=== PATIENT | female | born 1965 | race Caucasian/White ===

== ENCOUNTER 2016-11-10 23:21 | Observation (INO) | payer OTHER ==
--- NOTE | ~2016-11-10 | HP ---
History And Physical [place] [address] [place]. [address] NAME: YOLANDE QUINN : 63 STATUS : ADM Nelson PAT#: [id number] AGE: 51 ADM/REG DATE : 11/10/16 MR#: [id number] REPORT SERV DATE: 11/11/16 DICTATED BY: JAERTH PRICE DATE: 11/11/16 REPORT STATUS : Draft TRANSCRIBED BY: RENÉ DATE: 11/11/16 DATE OF ADMISSION: 11/10/2016 PRIMARY CARE PROVIDER: Allen Omalley Rayna. SAP PORTAL CONSULTANT: Murray Shay M.D. CHIEF COMPLAINT: Chest pain. HISTORY OF PRESENT ILLNESS: A very pleasant, but somewhat anxious 51-year-old white female with no known history of CAD, states that on 11/10, she had an extremely busy day at her [employer] and was also stressful and loud. She reports recently having had a cold and having taken some uuwk-vqi-snrcifd cold medicine yesterday morning. Later in the day, she experienced some chest pain and tightness with some radiation into her jaw and into her left shoulder blade. She states her hands hurt, but that is not unusual for her as she has some chronic bone pain in her left hand. She stopped on her way here at [facility]. Her blood pressure was checked, it was 160/100, and her pulse rate was 98. She describes her chest discomfort as a smothering tightness with associated shortness of breath and diaphoresis. She denies any nausea, dizziness, or belching. At its most intense, the chest pain was rated an 8/10. At time of interview in the [facility], she is pain free. She did take a low-dose aspirin prior to arrival here and states the episode lasted approximately 60 minutes in duration. The patient does not report any personal history of myocardial infarction, stroke, DVT, or pulmonary embolus. The patient recently treated with a Z-Adama for cold and confirms taking an wxny-mub-rcteiwu decongestant. Denies palpitations. No syncopal episodes. Denies PND or orthopnea. PAST MEDICAL HISTORY: 1. Hypertension. 2. Dyslipidemia. 3. Anxiety. 4. Denies diabetes. 5. GERD. 6. Chronic bone pain, left hand. 7. Positive family history for early CAD. 8. Reported carotid stenosis. PAST SURGICAL HISTORY: Hysterectomy, tubal ligation, right carpal tunnel, and endometriosis. SOCIAL HISTORY: She is , with one child. She is employed as a hairdresser. She does not have a structured exercise routine. Denies tobacco or illicits. Rarely consumes alcohol. FAMILY HISTORY: Father at 52 of a heart attack. Brother at 56 of a heart attack. Sister at 48 of a heart attack. History And Physical [address] [address] NAME: YOLANDE QUINN : 63 STATUS : ADM Nelson PAT#: [id number] AGE: 51 ADM/REG DATE : 11/10/16 MR#: [id number] REPORT SERV DATE: 11/11/16 DICTATED BY: JARETH PRICE DATE: 11/11/16 REPORT STATUS : Draft TRANSCRIBED BY: RENÉ DATE: 11/11/16 REVIEW OF SYSTEMS: A 14-point review of systems performed, significant for HPI. No other contributory factors identified. Otherwise, complete review of systems obtained and negative. ALLERGIES: NO KNOWN DRUG ALLERGIES HOME. HOME MEDICATIONS: Xanax 2 mg twice daily; aspirin 81 mg daily; Lexapro 20 mg daily; estradiol patch twice weekly; Lasix 20 mg daily p.r.n. edema, last taken one month ago; hydrocodone 10/325 every four hours p.r.n.; lisinopril 20 mg daily; meloxicam 7.5 mg daily; metoprolol succinate 25 mg daily; potassium 10 mEq daily with Lasix; Crestor 20 mg twice daily; Ambien 10 mg nightly; Prevacid one daily. PHYSICAL EXAMINATION: VITAL SIGNS: Bilateral blood pressures on arrival, right 149/72, left 153/84, this morning 122/56; pulse 58; respirations 20; temperature 97.5; O2 saturation 98% on room air. Height 5 feet 3 inches, weight 200 pounds, BMI 35. GENERAL: Cooperative, in no apparent distress. HEENT: Pupils 2 mm. Sclera nonicteric. Nares patent. Moist mucous membranes. No xanthelasma. NECK: Trachea midline. No thyromegaly. No JVD. No bruits. LYMPH: No cervical lymphadenopathy. No supraclavicular lymphadenopathy. RESPIRATORY: Unlabored respirations. Breath sounds clear bilaterally to posterior auscultation. No wheezes or rhonchi. CARDIOVASCULAR: Regular rate. No murmur, rub, or gallop appreciated. Extremities without edema. A faint left radial pulse. ABDOMEN: Soft, nontender, nondistended. Normal bowel sounds auscultated throughout. No organomegaly. SKIN: Warm, dry extremities. No pallor or cyanosis. PSYCHIATRIC: Appropriate affect. Alert, oriented x3. LABORATORY DATA: Troponin less than 0.02 x3. Potassium 3.7 (previously 3.2), BUN 14, creatinine 0.66, glucose 69, magnesium 2.3. WBC 8.1, hemoglobin 14.1, hematocrit 40.4, platelet count 349,000. EKG, sinus rhythm, first-degree AV block, nonspecific ST waves. Echo, 2011: EF 60%. MPI, 07/2015: Clement stage 2, 4.77 minutes, 7 METs, no ischemia. ASSESSMENT AND PLAN: 1. Chest pain in a patient with risk factors of hypertension, dyslipidemia, and family history. The patient has been observed in the CPOU overnight to rule out myocardial infarction. Serial enzymes and EKGs stable. The patient has been held n.p.o. We will proceed with MPI today. The patient will be discharged home if low risk, no ischemia. If anything suggestive of ischemia, Cardiology referral will be initiated. Otherwise, the patient will be asked to follow up her PCP and Dr. Shay as appropriate. 2. Hypertension. Monitor blood pressure. Continue home medications. Hold beta-anthony until after MPI. History And Physical [address] [address] NAME: YOLANDE QUINN : 63 STATUS : ADM Nelson PAT#: [id number] AGE: 51 ADM/REG DATE : 11/10/16 MR#: [id number] REPORT SERV DATE: 11/11/16 DICTATED BY: JARETH PRICE DATE: 11/11/16 REPORT STATUS : Draft TRANSCRIBED BY: RENÉ DATE: 11/11/16 3. Dyslipidemia. Continue statin. 4. Anxiety. Continue home medications. 5. Hypokalemia, initially 3.2, repleted per protocol, now 3.7. KANDACE/RENÉ LACEY Alonso, EMILIANA / [id number] CC: LACEY Alonso, EMILIANA Shay M.D.
[2016-11-10 20:04] LABS: BASOPHILS 0.4 %; BASOPHILS ABSOLUTE 0.03 10/3/uL (0.0-0.16); EOSINOPHILS 0.5 %; EOSINOPHILS ABSOLUTE 0.04 10/3/uL (0.0-0.53); HEMATOCRIT 40.4 % (36.0-48.0); HEMOGLOBIN 14.1 g/dL (12.0-16.0); IMMATURE GRANULOCYTES 0.2 %; IMMATURE GRANULOCYTES ABSOLUTE 0.02 10/3/uL (0.0-0.11); LYMPHOCYTES 16.7 %; LYMPHOCYTES ABSOLUTE 1.35 10/3/uL (0.67-4.30); MEAN CORPUS HGB CONC 34.9 g/dL (32.0-36.0); MEAN CORPUSCULAR HEMOGLOB 31.2 pg (26.0-34.0); MEAN CORPUSCULAR VOLUME 89.4 fL (80-100); MEAN PLATELET VOLUME 9.9 fL (9.2-13.0); MONOCYTES 7.3 %; MONOCYTES ABSOLUTE 0.59 10/3/uL (0.21-1.20); NEUTROPHILS 74.9 %; NEUTROPHILS ABSOLUTE 6.03 10/3/uL (2.02-8.40); PLATELET COUNT 349 10/3/uL (150-400); RBC DISTRIBUTION WIDTH 12.1 % (12.0-16.0); RED CELL COUNT 4.52 10/6/uL (4.0-5.6); WHITE BLOOD CELLS 8.1 10/3/uL (4.5-10.5)
[2016-11-10 20:08] LABS: MANUAL DIFF NO %
[2016-11-10 20:11] LABS: INTERNATIONAL NORMAL RATI 1.1 UNITS (-); PROTIME (NOT ORD) 13.6 SEC (12.0-14.5)
[2016-11-10 20:19] LABS: BUN (BLOOD UREA NITROGEN) 14 MG/DL (6-23); CALCIUM, SERUM 9.4 MG/DL (8.5-10.4); CHEST PAIN PROFILE TAT 0 Hrs 21 Mins; CHLORIDE, SERUM 103 MMOL/L (96-112); CO2 (CARBON DIOXIDE) 28 MMOL/L (24-34); CREATININE 0.66 MG/DL (0.55-1.02); GFR AFRICAN AMERICAN 118 ML/MIN (>=60); GFR NON AFRICAN AMERICAN 102 ML/MIN (>=60); GLUCOSE, SERUM 69 MG/DL (60-99); POTASSIUM, SERUM 3.2 MMOL/L (3.5-5.3); SODIUM, SERUM 142 MMOL/L (135-148); TROPONIN I <0.02 NG/ML (<0.05)
[2016-11-11] MEDS ORDERED: CRESTOR40 MG PO (02:15)
[2016-11-11] MEDS ORDERED: TOPXL25 PO (02:17)
[2016-11-11] MEDS ORDERED: KLOR-CON 1010 MEQ PO (02:20)
[2016-11-11] MEDS ORDERED: AMB10 PO (02:20)
[2016-11-11] MEDS ORDERED: MOBIC7.5 PO (02:20)
[2016-11-11] MEDS ORDERED: LEXAPRO20 PO (02:21)
[2016-11-11] MEDS ORDERED: XANAX2 MG PO (02:22)
[2016-11-11] MEDS ORDERED: NORCO1 TAB PO (02:23)
[2016-11-11] MEDS ORDERED: PRIN20 PO (02:24)
[2016-11-11] MEDS ORDERED: MINIVELLE1 EAC1 TOP (02:25)
[2016-11-11] MEDS ORDERED: L20 PO (02:29)
[2016-11-11] MEDS ORDERED: ASAB PO (02:30)
[2016-11-11] MEDS ORDERED: PREV15 PO (13:10)
[2016-11-11] MEDS ORDERED: CRESTOR20 MG PO (13:11)
== END 2016-11-11 14:24 | disposition home or self-care (01) ==
LOC: ER 23:21 → CDU1 23:40
PROVIDERS: Nurse Practitioner
DX: R07.9 Chest pain, unspecified (principal); I10 Essential (primary) hypertension; E78.5 Hyperlipidemia, unspecified; F41.9 Anxiety disorder, unspecified; E87.6 Hypokalemia; K21.9 Gastro-esophageal reflux disease without esophagitis; E78.00 Pure hypercholesterolemia, unspecified; Z82.49 Family history of ischemic heart disease and other diseases of the circulatory system; Z90.710 Acquired absence of both cervix and uterus; Z98.51 Tubal ligation status; Z98.890 Other specified postprocedural states; Z79.82 Long term (current) use of aspirin; Z79.891 Long term (current) use of opiate analgesic; Z79.899 Other long term (current) drug therapy
CPT/HCPCS: 71020; 78452; 80048; 83735; 84132; 84484; 85025; 85610; 85730; 93005; 93017; 99285; A9270-GY; A9502; G0378